=== PATIENT | male | born 1955 | race Caucasian/White ===

== ENCOUNTER 2018-03-11 01:00 | Observation (INO) | payer OTHER ==
[2018-03-11] VITALS (7 sets, daily range): BP systolic 130–159; BP diastolic 83–97; Ht 182.9 cm; Wt 115.7 kg
[~2018-03-11] VITALS: Ht 182.9 cm; Wt 115.7 kg
[2018-03-11 01:40] LABS: BASOPHIL % 0.6 % (0-2); PLATELET COUNT 155 x10^3mcL (130-400); RED CELL DISTRIBUTION WIDTH 13.1 % (11.5-14.5)
[2018-03-11 01:50] LABS: CALCIUM 8.5 mg/dL (8.5-10.1); CARBON DIOXIDE 26.6 mmol/L (21-32); CHLORIDE SERUM 107 mmol/L (98-107); CREATININE SERUM 1.1 mg/dL (0.7-1.3); GFR1 > 60 mL/min; GLUCOSE SERUM 82 mg/dL (74-106); POTASSIUM SERUM 3.3 mmol/L (3.5-5.1); SODIUM SERUM 141 mmol/L (136-145)
[2018-03-11 02:00] LABS: UA SPECIFIC GRAVITY >=1.030 (1.005-1.035); microscopic required? YES; urine erythrocyte TRACE (NEGATIVE)
[2018-03-11 02:02] LABS: ALBUMIN 3.4 g/dL (3.4-5.0); ALKALINE PHOSPHATASE 104 U/L (46-116); ALT/SGPT 23 U/L (16-63); AST/SGOT 20 U/L (15-37); BILIRUBIN TOTAL 0.23 mg/dL (0.20-1.00); TOTAL PROTEIN, SERUM 6.7 g/dL (6.4-8.2)
[2018-03-11 02:15] LABS: AMPHETAMINE QUAL UR NONE DETECTED (NEG <=1000)
[2018-03-11 04:27] LABS: CHOLESTEROL/HDL RATIO 2.4; MAGNESIUM 2.3 mg/dL (1.8-2.4); PHOSPHOROUS 3.2 mg/dL (2.5-4.9)
[2018-03-11 04:33] LABS: T3 TOTAL 0.98 ng/mL
[2018-03-11 04:37] LABS: FREE T4 0.84 ng/dL (0.76-1.46); FREE THYROXINE INDEX 2.2 ug/dL (1.4-4.5); T4(THYROXINE) 6.5 ug/dL (4.7-13.3)
[2018-03-12 06:16] VITALS: BP 140/96
[2018-03-12 08:33] LABS: BASOPHIL % 0.5 % (0-2); PLATELET COUNT 131 x10^3mcL (130-400); RED CELL DISTRIBUTION WIDTH 12.9 % (11.5-14.5)
[2018-03-12 08:40] LABS: CALCIUM 8.4 mg/dL (8.5-10.1); CARBON DIOXIDE 27.6 mmol/L (21-32); CHLORIDE SERUM 110 mmol/L (98-107); CREATININE SERUM 1.1 mg/dL (0.7-1.3); GFR1 > 60 mL/min; GLUCOSE SERUM 161 mg/dL (74-106); POTASSIUM SERUM 3.7 mmol/L (3.5-5.1); SODIUM SERUM 143 mmol/L (136-145)
[2018-03-12 09:22] VITALS: BP 131/78
[2018-03-12] MEDS ORDERED: FLO4 PO (11:09)
[2018-03-12] MEDS ORDERED: TRAZODONE100 MG PO (11:49)
[2018-03-12] MEDS ORDERED: COZ25 PO (11:49)
[2018-03-12] MEDS ORDERED: METOPROLOL TART25 M1 PO (11:49)
[2018-03-12] MEDS ORDERED: MEMANTINE HCL10 MG PO (11:49)
[2018-03-12 13:04] VITALS: BP 131/78
== END 2018-03-12 13:41 | disposition home or self-care (01) | DRG 917 ==
LOC: ED 01:00 → EDBD 01:00 → DU 03:02
PROVIDERS: Emergency Medicine; Family Medicine
DX: T50.901A Poisoning by unspecified drugs, medicaments and biological substances, accidental (unintentional), initial encounter (principal); G92 Toxic encephalopathy; E87.2 Acidosis; G30.9 Alzheimer's disease, unspecified; F02.80 Dementia in other diseases classified elsewhere, unspecified severity, without behavioral disturbance, psychotic disturbance, mood disturbance, and anxiety; I10 Essential (primary) hypertension; E87.6 Hypokalemia; M79.7 Fibromyalgia; N40.0 Benign prostatic hyperplasia without lower urinary tract symptoms; F32.9 Major depressive disorder, single episode, unspecified; F43.10 Post-traumatic stress disorder, unspecified; Y92.003 Bedroom of unspecified non-institutional (private) residence as the place of occurrence of the external cause
CPT/HCPCS: 83880; 84439; 97535-GP; G0378; J2543; J7030; Q0092